=== PATIENT | male | born 1945 | race Caucasian/White ===

== ENCOUNTER → 2016-07-31 | Outpatient (CLI) | payer OTHER ==
[2016-07-31 11:52] LABS: EKG EKG PERFORMED
[2016-07-31 12:32] LABS: Basophils # (A) 0.1 k/uL (0-0.2); Basophils % (A) 1 %; CH 30.5; CHCM 33.7; Eosinophils # (A) 0.2 k/uL (0-0.7); Eosinophils % (A) 4 %; HCT 47.3 % (39.0-53.0); HDW 2.51; HGB 15.4 gm/dL (13.0-17.5); Luc # (Auto) 0.11; Luc % (Auto) 2; Lymphocytes % (A) 16 %; MCH 29.6 pg (25.0-35.0); MCHC 32.5 g/dL (31.0-37.0); MCV 90.9 fL (80.0-100.0); Monocytes # (A) 0.5 k/uL (0-1.0); Monocytes % (A) 7 %; Neutrophils # (A) 4.6 k/uL (1.3-7.7); Neutrophils % (A) 71 %; Partial Thromboplastin Time 24.1 sec (22.0-30.0); Prothrombin Time 10.4 sec (9.0-12.0); RDW 12.9 % (11.5-15.5); WBC 6.5 k/uL (3.8-10.6); WBC (Perox) 6.66
[2016-07-31 13:03] LABS: Appearance,Urine Cloudy (Clear); Bacteria,Urine Rare /hpf; Bilirubin,Urine Negative (Negative); Glucose,Urine (UA) Negative (Negative); Ketones,Urine Trace (Negative); Leukocyte Esterase,Urine Negative (Negative); Mucus,Urine Occasional /hpf; Nitrite,Urine Negative (Negative); PH, Urine 6.5 (5.0-8.0); Particle Count 5669; Protein,Urine 2+ (Negative); Specific Gravity,Urine 1.023 (1.001-1.035); Squamous Epithelial Cell,Urine <1 /hpf (0-4); UA Billing (MACRO vs. MICRO) MICRO; WBC,Urine 1 /hpf (0-5)
[2016-07-31 13:05] LABS: ALT 29 U/L (21-72); AST 20 U/L (17-59); Alkaline Phosphatase 83 U/L (38-126); Anion Gap 10 mmol/L; Blood Urea Nitrogen 16 mg/dL (9-20); Calcium 9.7 mg/dL (8.4-10.2); Carbon Dioxide 29 mmol/L (22-30); Chloride 102 mmol/L (98-107); Glucose 104 mg/dL (74-99); Non-African American GFR(MDRD) >60 (>60 ml/min/1.73 sqM); Potassium 4.1 mmol/L (3.5-5.1); Sodium 141 mmol/L (137-145); Total Bilirubin 0.8 mg/dL (0.2-1.3); Total Protein 7.3 g/dL (6.3-8.2)
== END | disposition home or self-care (01) ==
LOC: LABPAT 11:31
PROVIDERS: ATTEND Orthopaedic Surgery
DX: Z01.812 Encounter for preprocedural laboratory examination (principal); Z01.810 Encounter for preprocedural cardiovascular examination
CPT/HCPCS: 80053; 81001; 85025; 85610; 85730; 87070; 93005

== ENCOUNTER 2016-08-06 05:52 | Inpatient (IN) | payer OTHER ==
[2016-08-02 15:26] VITALS: BMI 31.4
[~2016-08-06 05:52] MED LIST: DEXAMETHASONE SOD PHOSPHATE 10 MG/ML 1 ML VIAL IV ONE; MIDAZOLAM 2 MG/2 ML VIAL IV PRN; ONDANSETRON 4 MG/2 ML VIAL IVP ONE; SCOPOLAMINE 1.5MG/72HR PATCH TRANSDERM ONE; TRANEXAMIC ACID 1,000 MG in SODIUM CHLORIDE 0.9% 100 ML IVPB ONE; ceFAZolin 2 GM in SODIUM CHLORIDE 0.9% 100 ML IVPB ONE
[2016-08-06] MEDS: LACTATED RINGERS 1,000 ML IV SCH ×3 (06:38→21:30)
[2016-08-06] MEDS ORDERED: LIDOCAINE 1% 20 ML VIAL (10MG/ML) FOR IV START INTRADERMA ONE (06:39)
[2016-08-06] MEDS ORDERED: PHENYLEPHRINE-0.9% NACL SYG 1 MG/10 ML SYRINGE ONE (06:58)
[2016-08-06] MEDS ORDERED: SODIUM CHLORIDE 0.9% 100 ML BAG ONE (06:58)
[2016-08-06] MEDS ORDERED: SODIUM CHLORIDE 0.9% IRRIG 1,000 ML BTL IRRIGATION ONE (06:58)
[2016-08-06] MEDS ORDERED: PROPOFOL 10 MG/ML 20 ML VIAL IV ONE (06:58)
[2016-08-06] MEDS ORDERED: fentaNYL (PF) 50 MCG/ML 2 ML AMP ONE (06:58)
[2016-08-06] MEDS ORDERED: MIDAZOLAM 2 MG/2 ML VIAL ONE (06:58)
[2016-08-06] MEDS ORDERED: HEPARIN SODIUM,PORCINE 10,000 UNIT/ML 1 ML VIAL ONE (06:58)
[2016-08-06] MEDS ORDERED: TRANEXAMIC ACID 1,000 MG/10 ML VIAL ONE (06:58)
[2016-08-06] MEDS ORDERED: ePHEDrine 50 MG/ML 1 ML AMP ONE (06:58)
[2016-08-06] MEDS ORDERED: LACTATED RINGERS 1,000 ML IV ONE ×3 (07:48→09:27)
[2016-08-06] MEDS ORDERED: ceFAZolin 3,000 MG in SODIUM CHLORIDE 0.9% IRRIGATIO 3,000 ML IRRIGATION ONE (08:00)
[2016-08-06] MEDS ORDERED: HYDROcodone/APAP 5-325MG 1 EACH TAB PO PRN (09:56)
[2016-08-06] MEDS ORDERED: TEMAZEPAM 15 MG CAP PO PRN (09:56)
[2016-08-06] MEDS ORDERED: HYDROmorphone 1 MG/ML 1 ML SYRINGE IVP PRN ×3 (09:56)
[2016-08-06] MEDS ORDERED: ONDANSETRON 4 MG/2 ML VIAL IVP PRN (09:56)
[2016-08-06] MEDS ORDERED: MAGNESIUM HYDROXIDE 2,400 MG/10 ML CUP PO PRN (09:56)
[2016-08-06] MEDS ORDERED: NALOXONE 0.4 MG/ML 1 ML VIAL IV PRN (09:56)
[2016-08-06] MEDS: HYDROmorphone 1 MG/ML 1 ML SYRINGE IVP PRN ×2 (10:06→10:11)
--- NOTE | 2016-08-06 10:48 | XR ---
EXAMINATION TYPE: XR Hip Limited RT DATE OF EXAM: 08/06/2016 10:21 AM COMPARISON: NONE HISTORY: 70-year-old male status post hip surgery, assess surgical alignment TECHNIQUE: Single portable frontal view FINDINGS: Image shows placement of right total hip arthroplasty. The acetabular cup and femoral short stem comp onent of the prosthesis appear well seated without periprosthetic fracture. Alignment is grossly nani omic. Soft tissue gas relating to recent operation. IMPRESSION: Uncomplicated postoperative appearance right total hip arthroplasty.
[2016-08-06] MEDS: HYDROcodone/APAP 5-325MG 1 EACH TAB PO PRN ×2 (14:05→21:44)
[2016-08-06] MEDS: SERTRALINE 100 MG TAB PO SCH ×2 (16:13→16:14)
[2016-08-06] MEDS: ceFAZolin 2 GM in SODIUM CHLORIDE 0.9% 100 ML IVPB SCH ×2 (16:14→23:00)
[2016-08-06] MEDS ORDERED: WARFARIN 5 MG TAB PO ONE (18:00)
--- NOTE | 2016-08-06 20:33 | CONS ---
DATE OF CONSULTATION: REASON FOR CONSULTATION: Recommendations regarding antihypertensive medications, postoperative medical management and postoperative hypotension. Patient is a pleasant 70-year-old gentleman admitted for elective right hip arthroplasty. Patient ( ) underwent surgery. Patient is passing gas, did not move his bowels yet. Patient denied any fever or chills. Patient denied any dysuria. Patient denied any cough ( ). I believe Marie catheter was removed. Patient lost about 350 mL of blood. Patient was mildly hypotensive postoperatively, which improved with IV fluids. REVIEW OF SYSTEMS: CONSTITUTIONAL: No fever, no malaise, no fatigue. HEENT: No recent visual problems or hearing problems. Denied any sore throat. CARDIOVASCULAR: No chest pain, orthopnea, PND, no palpitations, no syncope. PULMONARY: No shortness of breath, no cough, no hemoptysis. GASTROINTESTINAL: No diarrhea, no nausea, no vomiting, no abdominal pain. Normoactive bowel sounds. NEUROLOGICAL: No headaches, no weakness, no numbness. HEMATOLOGICAL: Denies any bleeding or petechiae. GENITOURINARY: Denies any burning micturition, frequency, or urgency. MUSCULOSKELETAL/RHEUMATOLOGICAL: Patient's pain is very well controlled at this point of time. ENDOCRINE: Denies any polyuria or polydipsia. The rest of the 14 point review of systems is negative. Home medications include: 1. Valsartan. 2. Sertraline. 3. Mobic. 4. Levothyroxine. 5. Hydrochlorothiazide. 6. Atorvastatin. 7. Warfarin. 8. Aspirin. PAST MEDICAL HISTORY: 1. Hypertension. 2. Hyperlipidemia. 3. Severe osteoarthritis. 4. Sleep apnea; uses CPAP machine at home. 5. Hypothyroidism. 6. Hernia repair. 7. Joint replacement surgery. 8. Shoulder surgery. SOCIAL HISTORY: Former smoker; quit 25 years ago. Denied any alcohol abuse or any drug abuse. FAMILY HISTORY: Significant for lung cancer in the family. PHYSICAL EXAMINATION: VITAL SIGNS: Temperature 98.0, pulse of 93, respiratory rate of 17. Blood pressure is 115/68 at present. Saturating at 95% on 2 L of oxygen by nasal cannula. GENERAL: The patient is alert and oriented x3, not in any acute distress. Well developed, well nourished. HEENT: Pupils are round and equally reacting to light. EOMI. No scleral icterus. No conjunctival pallor. Normocephalic, atraumatic. No pharyngeal erythema. No thyromegaly. CARDIOVASCULAR: S1 and S2 present. No murmurs, rubs, or gallops. PULMONARY: Chest is clear to auscultation, no wheezing or crackles. ABDOMEN: Soft, nontender, nondistended, normoactive bowel sounds. No palpable organomegaly. MUSCULOSKELETAL: No joint swelling or deformity. EXTREMITIES: No cyanosis, clubbing, or pedal edema. NEUROLOGICAL: Gross neurological examination did not reveal any focal deficits. SKIN: No rashes. LABORATORY DATA: None available at this point of time. ASSESSMENT AND PLAN: 1. Right hip arthroplasty, postoperative day zero. Patient is clinically doing well. I will hold off on antihypertensives to prevent perioperative hypotension. 2. Hypotension, which is not expected post surgery. I will hold off on antihypertensive medications, continue with IV fluids. 3. Hypothyroidism. 4. Hyperlipidemia. 5. Deep venous thrombosis prophylaxis, gastrointestinal prophylaxis and pain management as per primary service. I will continue to follow the patient on an as-needed basis. Thank you for letting me participate in this patient's care. Patient's primary care physician is Dr. Cesar Mohr.
[2016-08-06] MEDS: SENNOSIDES-DOCUSATE SODIUM 1 EACH TAB PO SCH (21:30)
[2016-08-06] MEDS: ATORVASTATIN 10 MG TAB PO SCH (21:30)
[2016-08-06] MEDS: hydrOXYzine PAMOATE 25 MG CAP PO PRN (21:45)
[2016-08-07] MEDS: HYDROcodone/APAP 5-325MG 1 EACH TAB PO PRN (04:16)
[2016-08-07] MEDS: hydrOXYzine PAMOATE 25 MG CAP PO PRN ×4 (04:16→21:20)
[2016-08-07] MEDS: LACTATED RINGERS 1,000 ML IV SCH ×2 (06:09→06:10)
[2016-08-07] MEDS: LEVOTHYROXINE 112 MCG TAB PO SCH (06:10)
[2016-08-07 07:59] LABS: INR 1.9 (<1.1); Prothrombin Time 18.3 sec (9.0-12.0)
[2016-08-07 08:17] LABS: Basophils # (A) 0.1 k/uL (0-0.2); Basophils % (A) 1 %; CH 30.4; CHCM 33.4; Eosinophils # (A) 0.1 k/uL (0-0.7); Eosinophils % (A) 1 %; HCT 36.9 % (39.0-53.0); HDW 2.43; Luc % (Auto) 2; Lymphocytes # (A) 1.1 k/uL (1.0-4.8); Lymphocytes % (A) 18 %; MCH 30.1 pg (25.0-35.0); MCV 91.4 fL (80.0-100.0); Mean Platelet Volume 7.6; Monocytes # (A) 0.4 k/uL (0-1.0); Monocytes % (A) 7 %; Neutrophils # (A) 4.7 k/uL (1.3-7.7); Neutrophils % (A) 72 %; RBC 4.04 m/uL (4.30-5.90); RDW 12.8 % (11.5-15.5); WBC 6.5 k/uL (3.8-10.6); WBC (Perox) 6.72
--- NOTE | 2016-08-07 08:17 | P.PN ---
Subjective Principal diagnosis: Status post right total hip arthroplasty This is a 70 year-old male post right total hip arthroplasty. This is post-op day 1. The patient was evaluated at the bedside today. The patient denies nausea, vomiting, abdominal pain, shortness of breath, and chest pain this morning. He states his pain is controlled at this time. The patient has not been up with physical therapy yet this morning but did ambulate in the hallway last night. Objective - Vital Signs Vital signs: Vital Signs Temp 97.1 F L 08/07/16 04:00 Pulse 91 08/07/16 04:00 Resp 18 08/07/16 04:00 BP 111/64 08/07/16 04:00 Pulse Ox 99 08/06/16 18:57 Intake & Output 08/06/16 08/07/16 08/07/16 18:59 06:59 18:59 Intake Total 3881 480 Output Total 890 2240 Balance 2991 -1760 Weight 99.337 kg 99.337 kg Intake: IV 1601 Intake, IV Titration 800 Amount Lactated Ringers 1,000 ml 800 @ 100 mls/hr IV .Q10H [facility] Rx#:[id number] Oral 1480 480 Output: Urine 540 2240 Uretheral (Marie) 300 Estimated Blood Loss 350 Other: Voiding Method Indwelling Catheter Indwelling Catheter - Exam The patient does not appear in acute distress. Alert and orientated x3. Dressing is clean dry and intact. Incision appears fine with no erythema or active drainage. Calf is soft and nontender. Good foot and ankle motion without difficulty. Sensation and circulatory status is intact. - Labs Labs: Abnormal Lab Results - Last 24 Hours (Table) 08/07/16 Range/Units 07:18 PT 18.3 H (9.0-12.0) sec Laboratory Tests 08/07/16 07:18 PT 18.3 H INR 1.9 Assessment and Plan (1) Primary osteoarthritis of right hip Status: Acute (2) Status post right hip replacement Status: Acute Plan: 1. Continue pain control 2. Anticoagulation with Coumadin per protocol 3. Continue physical therapy and ambulation 4. Anticipate discharge home with homecare in the next 1-2 days
[2016-08-07 08:35] LABS: HGB 12.2 gm/dL (13.0-17.5)
[2016-08-07] MEDS: SERTRALINE 100 MG TAB PO SCH ×2 (09:17)
[2016-08-07] MEDS: HYDROcodone/APAP 7.5-325MG 1 EACH TAB PO PRN ×3 (09:18→21:21)
[2016-08-07] MEDS ORDERED: WARFARIN 5 MG TAB PO ONE (18:00)
--- NOTE | 2016-08-07 20:06 | OP ---
DATE OF SERVICE: 08/06/2016 SURGEON: TANYA HYATT DO MAT PUNCHER: ANTHONY ISAAC NP PREOPERATIVE DIAGNOSIS: Degenerative joint disease of the right hip. POSTOPERATIVE DIAGNOSIS: Degenerative joint disease of the right hip. OPERATION: Right total hip replacement arthroplasty utilizing Ebony components with a metal-backed polyethylene cup. ANESTHESIA: ESTIMATED BLOOD LOSS: SPECIMENS REMOVED: COMPLICATIONS: OPERATIVE FINDINGS: DESCRIPTION OF PROCEDURE: The patient was taken to the operative suite and placed in supine position. Spinal anesthesia had been performed by the department of anesthesiology. The patient was placed in the left lateral recumbent position. With appropriate padding he was secured on the surgical table. A Betadine prep was carried out over the right hip. Sterile drapes were applied in the usual manner. A longitudinal incision was developed over the proximal femur and the greater trochanter. Sharp dissection through the subcutaneous tissues was performed. The tensor fascia liseth was incised and self retaining retractor was inserted. Gluteus medius was dissected along the greater trochanter. The anterior capsule was identified and the leg adducted and the femoral head dislocated. Femoral neck was shaped with a bone saw and the femoral head was measured. The box chisel and reamer was utilized in preparing the canal. The trochanteric reamer was utilized preparing the proximal canal. Graduated reaming was carried out to a size 12 for a graduated approach that was utilized in the canal measuring a size 13. The shelving planer was utilized in preparing the femoral neck. The stability of the component was excellent. The acetabulum was approached and inspected. Graduated reaming was utilized to prepare for the size 52 press-fit cup. The trial cup was assessed for stability and alignment was well maintained. The area was irrigated copiously with Pulsavac antibiotic solution. The size 52 femoral component was impacted into position. Alignment and stability were maintained. The 54 mm cup was inserted and impacted, too. Two cancellous screws were inserted for cup stability. The final polyethylene 32 mm elevated liner cup was placed into the metal-backed cup, impacted and locked into position. The proximal femur was approached with a femoral stem size 13 and showed good position in the cortical arc. The trial neck was then placed into position with 13 mm head and neck. The hip was reduced. This showed alignment and stability. The hip was then dislocated and the trial femoral components were removed. The area was irrigated again with antibiotic solution. The final femoral stem was inserted. The final 32 mm liner was impacted around the trunnion. Head was again stable in alignment and position. Leg lengths were comparable to each other. The gluteus medius approximated with #3 Vicryl suture. The #2 Vicryl and Quill suture was utilized in reinforcing the fascia liseth. Vicryl suture was utilized in approximating subcutaneous tissue in mattress fashion. Skin was approximated with 3-0 Quill in subcuticular fashion. Skin was treated with Dermabond. Sterile pressure dressing were applied and the patient was placed in an abductor pillow splint and transferred to the recovery room in satisfactory postoperative condition. GROSS PATHOLOGY: There was severe degenerative joint disease of the right hip. Estimated blood loss 350 mL; 250 mL was returned utilizing CellSaver. JAMILAD
[2016-08-07] MEDS: ATORVASTATIN 10 MG TAB PO SCH (21:18)
[2016-08-07] MEDS: SENNOSIDES-DOCUSATE SODIUM 1 EACH TAB PO SCH (21:21)
[2016-08-08 04:57] VITALS: RESP 16
[2016-08-08] MEDS: HYDROcodone/APAP 7.5-325MG 1 EACH TAB PO PRN ×2 (05:35→11:06)
[2016-08-08] MEDS: hydrOXYzine PAMOATE 25 MG CAP PO PRN ×2 (05:35→11:05)
[2016-08-08] MEDS: LEVOTHYROXINE 112 MCG TAB PO SCH (05:36)
[2016-08-08 07:20] VITALS: BP 112/62; PULSE 90; TEMP 98.6
[2016-08-08 08:03] LABS: INR 2.1 (<1.1); Prothrombin Time 20.4 sec (9.0-12.0)
--- NOTE | 2016-08-08 08:16 | P.DS ---
Providers Date of admission: 08/06/16 05:52 Expected date of discharge: 08/08/16 Attending physician: Randal Abdi Consults: 08/06/16 09:56 Consult Physician Routine Consulting Provider: Fran Tillman Consult Reason/Comments: medical management Do you want consulting provider notified?: Yes Primary care physician: Cesar Mohr - Discharge Diagnosis(es) (1) Primary osteoarthritis of right hip Current Visit: Yes Status: Acute (2) Status post right hip replacement Current Visit: Yes Status: Acute Hospital Course: This is a 70-year-old male with known history of degenerative arthritis of the right hip. The patient presents for evaluation. After discussion and consideration patient elects to proceed with total hip arthroplasty. The patient is seen preoperatively by his primary care physician and cleared for surgery. Patient is admitted to [facility] on 08/06/2016 for total hip arthroplasty. The procedures performed without complication or sequelae. The patient is doing well postoperatively. Labs and vital signs are stable on day of discharge. On day of discharge patient's hip incision is healing well. There is minimal erythema. There is no drainage noted at this time. There is minimal soft tissue swelling to the hip and thigh. Patient has full foot and ankle motion without difficulty or pain. Neurovascular status to the right lower extremity is intact. Patient is discharged to home in good condition. Pertinent Studies: Laboratory Tests 08/07/16 08/07/16 07:18 07:18 WBC 6.5 RBC 4.04 L Hgb 12.2 L D Hct 36.9 L PT 18.3 H INR 1.9 Patient Condition at Discharge: Stable Plan - Discharge Summary New Discharge Prescriptions: Aspirin 325 mg PO DAILY #30 tab HYDROcodone/APAP 7.5-325MG [[place] 7.5-325] 1 - 2 tab PO Q4-6H PRN #90 tab PRN Reason: Pain Sennosides-Docusate Sodium [Senokot-S] 2 tab PO DAILY #30 tablet Warfarin [Coumadin] 2.5 mg PO DIRECTED #30 tab Discharge Medication List Atorvastatin [Lipitor] 10 mg PO HS 11/11/13 [History] Levothyroxine Sodium [Synthroid] 112 mcg PO QAM 11/11/13 [History] Hydrochlorothiazide [Hydrodiuril] 25 mg PO QAM 01/29/16 [History] Valsartan [Diovan] 160 mg PO QAM 01/29/16 [History] Mobic(Unk Dose) 1 tab PO DAILY 08/02/16 [History] Sertraline HCl [Zoloft] 100 mg PO QAM 08/02/16 [History] Aspirin 325 mg PO DAILY #30 tab 08/06/16 [Rx] Warfarin [Coumadin] 2.5 mg PO DIRECTED #30 tab 08/06/16 [Rx] HYDROcodone/APAP 7.5-325MG [[place] 7.5-325] 1 - 2 tab PO Q4-6H PRN #90 tab [Rx] Sennosides-Docusate Sodium [Senokot-S] 2 tab PO DAILY #30 tablet 08/07/16 [Rx] Follow up Appointment(s)/Referral(s): Randal Abdi DO [Doctor of Osteopathic Medicine] - 2 Weeks [facility], [NON-STAFF] - 1 Week Activity/Diet/Wound Care/Special Instructions: Weightbearing as tolerated with a walker Coumadin 2.5 mg 1 by mouth every other day for 7 days then take Aspirin 325mg daily for 1 month Follow Hip precautions Use Abductor pillow as instructed May shower in 3 days if no drainage from incision Keep incision clean and dry Call [facility] [phone] with questions or concerns Discharge Disposition: HOME WITH HOME HEALTH SERVICES
[2016-08-08] MEDS: SERTRALINE 100 MG TAB PO SCH (08:26)
--- NOTE | 2016-08-08 19:23 | PN ---
Patient is a 70-year-old admitted for elective right hip arthroplasty. Patient is clinically doing well and patient can be discharged from my perspective. DVT prophylaxis per primary service. Patient was seen and examined. REVIEW OF SYSTEMS: CARDIOVASCULAR: No chest pain, no orthopnea, no PND, no palpitations. PULMONARY: Denied any shortness of breath. No cough or hemoptysis. GASTROINTESTINAL: No diarrhea, nausea or vomiting. No abdominal pain. Normoactive bowel sounds. NEUROLOGIC: No headaches, no weakness, no numbness. Regarding discharge medications, I recommend holding Diovan for now until he sees a primary care physician. I counseled him on the appropriate way to measure the blood pressure. Patient's blood pressure remains to be on the low-normal side in spite of holding this medication for a day. PHYSICAL EXAMINATION: VITAL SIGNS: Temperature 98.6, pulse of 90, respiratory rate of 16. Blood pressure is 112/62. Saturating at 93% on room air GENERAL: The patient is alert and oriented x3, not in any acute distress. Well developed, well nourished. HEENT: Pupils are round and equally reacting to light. EOMI. No scleral icterus. No conjunctival pallor. Normocephalic, atraumatic. No pharyngeal erythema. No thyromegaly. CARDIOVASCULAR: S1 and S2 present. No murmurs, rubs, or gallops. PULMONARY: Chest is clear to auscultation, no wheezing or crackles. ABDOMEN: Soft, nontender, nondistended, normoactive bowel sounds. No palpable organomegaly. MUSCULOSKELETAL: No joint swelling or deformity. EXTREMITIES: No cyanosis, clubbing, or pedal edema. NEUROLOGICAL: Gross neurological examination did not reveal any focal deficits. SKIN: No rashes. LABORATORY DATA: No significant abnormality was appreciated. ASSESSMENT AND PLAN: 1. Right hip arthroplasty. 2. Perioperative hypotension. 3. History of hypertension. 4. Hypothyroidism. 5. Hyperlipidemia. PLAN: As mentioned above.
--- NOTE | 2016-10-24 15:53 | CONS ---
DATE OF CONSULTATION: 08/06/2016 ADDENDUM TO CONSULTATION: Patient was hypotensive during hospitalization. This is an expected outcome post surgery rather than a complication of surgery. I do not believe it is a complication of surgery. It is an expected outcome of the surgery.
== END 2016-08-08 13:27 | disposition home health service (06) | DRG 470 ==
LOC: 2ORMAIN 05:52 → 3SUR 09:56
PROVIDERS: ADMIT Orthopaedic Surgery; ATTEND Orthopaedic Surgery
PROC: 0SR902A Replacement of Right Hip Joint with Metal on Polyethylene Synthetic Substitute, Uncemented, Open Approach (ICD-10-PCS; principal; 2016-08-06 07:00)
DX: M16.11 Unilateral primary osteoarthritis, right hip (principal); I95.89 Other hypotension; I10 Essential (primary) hypertension; E03.9 Hypothyroidism, unspecified; Z79.899 Other long term (current) drug therapy; E78.5 Hyperlipidemia, unspecified; G47.30 Sleep apnea, unspecified; Z87.891 Personal history of nicotine dependence; Z79.82 Long term (current) use of aspirin
CPT/HCPCS: 73501; 85025; 85610; 86850; 86891; 86900; 86901; 88300; 94760

== ENCOUNTER → 2017-12-25 | Outpatient (CLI) | payer OTHER ==
--- NOTE | 2017-12-25 17:57 | CONS ---
CONSULTATION DATE OF SERVICE: 12/25/2017 A 72-year-old gentleman has been evaluated in [facility] for obstructive sleep apnea- hypopnea syndrome. HISTORY OF PRESENT ILLNESS/SLEEP-WAKE EVALUATION: Patient was diagnosed with obstructive sleep apnea many years ago, was started on treatment with CPAP, but stopped using CPAP about 5 years ago. Presently his sleep schedule from 10 p.m. to 10:00 a.m. Sometimes he has problems to fall asleep, although no TV in the bedroom. According to his , he has loud snoring and episodes of snorting, possibly episodes of stopped breathing during the sleep. He very seldom takes any naps. Lehr Sleepiness Scale is 5. PAST MEDICAL HISTORY: Positive for hyperlipidemia, hypertension, hypothyroidism. PAST SURGICAL HISTORY: Bilateral knee replacement, right hip replacement. MEDICATIONS: Atorvastatin, valsartan, hydrochlorothiazide, levothyroxine. REVIEW OF SYSTEMS: Snoring, witnessed episodes of stopped breathing. SOCIAL HISTORY: Positive for smoking in the past, quit 25 years ago. Alcohol consumption none at the present time. FAMILY HISTORY: Hypertension, asthma, sinus problems, diabetes. PHYSICAL EXAM: GENERAL gentleman without distress. VITAL SIGNS BP 130/73, HR 89, R 18, height 5 feet 8 inches, weight 241.8, BMI 36.6, temperature 98, oxygen saturation room air 93%. HEPOLINA JOSERBEATRICE, EOMI, evaluation of oropharynx showed extremely low position of soft palate. Big scar on the upper part of the soft palate. NECK Supple, no JVD. Thyroid is not palpable. LUNGS Clear to percussion and to auscultation. Good air exchange. No wheezing or rhonchi. HEART S1, S2 regular. No murmurs, gallops, or rubs. ABDOMEN Obese. Soft and nontender. Bowel sounds are present. No organomegaly appreciated. EXTREMITIES No clubbing or cyanosis. SALES SUPERINTENDENT Awake, alert, and oriented X3. Cranial nerves 2 to 7 intact. There is no fasciculation or atrophy. noted. No focal deficits observed. IMPRESSION: 1. Snoring, witnessed episodes of stopped breathing during the sleep. History of obstructive sleep apnea in the past. Extremely low position of soft palate, wide neck 17-1/4 inch in circumference. Obstructive sleep apnea-hypopnea syndrome. 2. Obesity. 3. Hypertension. 4. Hypothyroidism. 5. Hyperlipidemia. 6. Status post bilateral knee replacement. 7. Status post right hip replacement. 8. History of smoking in the past. Quit 25 years ago. PLAN: 1. Polysomnography for evaluation of patient's breathing during sleep. 2. CPAP/BiPAP titration if sleep study confirms obstructive sleep apnea-hypopnea syndrome. 3. Preferable position during sleep on the side. 4. No driving if patient feels any sleepiness. 5. I will see patient for follow up visit to explain results of testing and following plan. Thank you very much for referring this patient for consultation. Sincerely, Jorje Fenton MD, PhD, FAASM Diplomat of [place] [employer] [place] [employer] Regulatory [employer]folio Leader of [facility] MMODL / IJN: [id number] /
== END | disposition home or self-care (01) ==
LOC: SLEEP 13:49
PROVIDERS: ATTEND Internal Medicine
DX: G47.33 Obstructive sleep apnea (adult) (pediatric) (principal); E66.9 Obesity, unspecified; I10 Essential (primary) hypertension; E03.9 Hypothyroidism, unspecified; E78.5 Hyperlipidemia, unspecified; Z96.653 Presence of artificial knee joint, bilateral; Z96.641 Presence of right artificial hip joint; Z87.891 Personal history of nicotine dependence
CPT/HCPCS: 99211

== ENCOUNTER 2019-04-14 08:02 | Day surgery (SDC) | payer MEDICARE, OTHER ==
[2019-04-12 09:24] VITALS: BMI 31.1
[~2019-04-14 08:02] MED LIST changes: -DEXAMETHASONE SOD PHOSPHATE 10 MG/ML 1 ML VIAL IV ONE; +LACTATED RINGERS 1,000 ML IV SCH; +LIDOCAINE 1% 20 ML VIAL (10MG/ML) FOR IV START INTRADERMA PRN; -MIDAZOLAM 2 MG/2 ML VIAL IV PRN; -ONDANSETRON 4 MG/2 ML VIAL IVP ONE; -SCOPOLAMINE 1.5MG/72HR PATCH TRANSDERM ONE; -TRANEXAMIC ACID 1,000 MG in SODIUM CHLORIDE 0.9% 100 ML IVPB ONE; -ceFAZolin 2 GM in SODIUM CHLORIDE 0.9% 100 ML IVPB ONE
--- NOTE | 2019-04-14 08:21 | P.GSHP ---
History of Present Illness H&P Date: 04/14/19 CHIEF COMPLAINT: Colon screen HISTORY OF PRESENT ILLNESS: The patient is a 73-year-old male who presents for colon screen. Lower endoscopy was offered for further evaluation and management. PAST MEDICAL HISTORY: Please see list. PAST SURGICAL HISTORY: Please see list. MEDICATIONS: Please see list. ALLERGIES: Please see list. SOCIAL HISTORY: No illicit drug use FAMILY HISTORY: No reports of Crohn disease or ulcerative colitis. REVIEW OF ORGAN SYSTEMS: CONSTITUTIONAL: No reports of fevers or chills. PHYSICAL EXAM: VITAL SIGNS: Stable GENERAL: Well-developed pleasant in no acute distress. HEENT: No scleral icterus. Extraocular movements grossly intact. Moist buccal mucosa. NECK: Supple without lymphadenopathy. CHEST: Unlabored respirations. Equal bilateral excursions. CARDIOVASCULAR: Regular rate and rhythm. Distal 2+ pulses. ABDOMEN: Soft, nontender, nondistended. MUSCULOSKELETAL: No clubbing, cyanosis, or edema. ASSESSMENT: 1. Colon screen. PLAN: 1. Recommend proceeding with a lower endoscopy Past Medical History Past Medical History: Hyperlipidemia, Hypertension, Osteoarthritis (OA), Sleep Apnea/CPAP/BIPAP, Thyroid Disorder Additional Past Medical History / Comment(s): USES CPAP. History of Any Multi-Drug Resistant Organisms: None Reported Past Surgical History: Hernia Repair, Joint Replacement, Orthopedic Surgery Additional Past Surgical History / Comment(s): Left shoulder surg. BILAT TKA. BILAT CATARACTS, RT CHI, COLONOSCOPY Past Anesthesia/Blood Transfusion Reactions: No Reported Reaction Additional Past Anesthesia/Blood Transfusion Reaction / Comment(s): no hx blood transfusion Smoking Status: Former smoker - Past Family History Mother Family Medical History: Diabetes Mellitus Father Additional Family Medical History / Comment(s): alcoholism Brother(s) Family Medical History: Cancer Additional Family Medical History / Comment(s): lung Medications and Allergies Home Medications Medication Instructions Recorded Confirmed Type Atorvastatin [Lipitor] 10 mg PO HS 11/11/13 04/12/19 History Hydrochlorothiazide 25 mg PO HS 04/12/19 04/12/19 History Levothyroxine Sodium [Synthroid] 125 mcg PO DAILY 04/12/19 04/12/19 History Losartan Potassium 100 mg PO HS 04/12/19 04/12/19 History Allergies Allergy/AdvReac Type Severity Reaction Status Date / Time No Known Allergies Allergy Verified 04/14/19 08:19
[2019-04-14 08:35] VITALS: RESP 16; TEMP 98.4
[2019-04-14] MEDS ORDERED: PROPOFOL 10 MG/ML 20 ML VIAL IV ONE (08:46)
[2019-04-14 09:38] VITALS: BP 109/66; PULSE 82
--- NOTE | 2019-04-14 09:38 | P.PCN ---
Date of Procedure: 04/14/19 Description of Procedure: PREOPERATIVE DIAGNOSIS: Colonoscopy screening. Personal history of colon polyps POSTOPERATIVE DIAGNOSIS: Colonoscopy screening. Personal history of colon polyps Diverticulosis, scattered. Internal hemorrhoids, grade 2 Enlarged prostate OPERATION: Colonoscopy to the ileocecal valve and appendiceal orifice. SURGEON: Dawn Rojas MD. ANESTHESIA: MAC. INDICATIONS: The patient is a 73-year-old male who presents for colonoscopy screening. Benefits and risks were described and informed consent was obtained. DESCRIPTION OF PROCEDURE: The patient had undergone Suprep. He had been brought into the operating room and laid in the left lateral decubitus position. After adequate intravenous sedation, the rectum was examined with 2% lidocaine jelly. External hemorrhoids were encountered. The rectal tone was within normal limits. No lesions were palpated in the rectal vault. The prostate was moderately enlarged without nodules. An Olympus colonoscope was advanced until the ileocecal valve and appendiceal orifice were clearly viewed. The prep was fair with moderate g astrointestinal bubbles. Scattered diverticulosis was encountered with highly redundant sigmoid colon requiring abdominal wall pressure. No large colonic polyps were found. No evidence of focal colitis was found. Retroflexion of the scope demonstrated grade 2 internal hemorrhoids without active bleeding or inflammation. The colon was desufflated. The patient had tolerated the procedure well. Withdrawal time was over 6 minutes. FINDINGS: Aronchick preparation quality scale 1 (1-5) Internal hemorrhoids, grade 2 External prolapsed hemorrhoids, grade 3 No arteriovenous malformations. No adenomatous polyps. No focal colitis. Highly redundant sigmoid colon with diverticulosis Enlarged prostate RECOMMENDATIONS: Lower endoscopy in 5 years, 2023 Plan - Discharge Summary Discharge Rx Participant: No New Discharge Prescriptions: No Action Atorvastatin [Lipitor] 10 mg PO HS Levothyroxine Sodium [Synthroid] 125 mcg PO DAILY Losartan Potassium 100 mg PO HS Hydrochlorothiazide 25 mg PO HS Discharge Medication List Atorvastatin [Lipitor] 10 mg PO HS 11/11/13 [History] Hydrochlorothiazide 25 mg PO HS 04/12/19 [History] Levothyroxine Sodium [Synthroid] 125 mcg PO DAILY 04/12/19 [History] Losartan Potassium 100 mg PO HS 04/12/19 [History] Follow up Appointment(s)/Referral(s): Dawn Rojas MD [STAFF PHYSICIAN] - As Needed Patient Instructions/Handouts: *Surgery [facility] - (Anesthesia) Endoscopy Discharge Instructions, Hemorrhoids (DC), Diverticulosis (DC), Colonoscopy (DC) Activity/Diet/Wound Care/Special Instructions: Repeat colonoscopy in 5 years, 2023 Discharge Disposition: HOME SELF-CARE
== END 2019-04-14 09:58 | disposition home or self-care (01) ==
LOC: ORWHC2ENDO 08:02
PROVIDERS: ATTEND Surgery Plastic and Reconstructive Surgery
DX: Z12.11 Encounter for screening for malignant neoplasm of colon (principal); K57.30 Diverticulosis of large intestine without perforation or abscess without bleeding; Q43.8 Other specified congenital malformations of intestine; K64.2 Third degree hemorrhoids; K64.1 Second degree hemorrhoids; N40.0 Benign prostatic hyperplasia without lower urinary tract symptoms; Z86.010 Personal history of colon polyps; E78.5 Hyperlipidemia, unspecified; I10 Essential (primary) hypertension; E07.9 Disorder of thyroid, unspecified; M19.90 Unspecified osteoarthritis, unspecified site; G47.33 Obstructive sleep apnea (adult) (pediatric); Z99.89 Dependence on other enabling machines and devices; Z87.891 Personal history of nicotine dependence; Z96.653 Presence of artificial knee joint, bilateral; Z96.641 Presence of right artificial hip joint; Z98.49 Cataract extraction status, unspecified eye; Z81.1 Family history of alcohol abuse and dependence
CPT/HCPCS: J2704; G0105

== ENCOUNTER → 2019-07-06 | Outpatient (CLI) | payer OTHER ==
[2019-07-06 12:37] LABS: Basophils # (A) 0.1 k/uL (0-0.2); Basophils % (A) 1 %; Eosinophils # (A) 0.2 k/uL (0-0.7); Eosinophils % (A) 3 %; HCT 47.2 % (39.0-53.0); HGB 15.5 gm/dL (13.0-17.5); Lymphocytes # (A) 1.3 k/uL (1.0-4.8); Lymphocytes % (A) 19 %; MCH 30.1 pg (25.0-35.0); MCHC 32.7 g/dL (31.0-37.0); MCV 91.9 fL (80.0-100.0); Mean Platelet Volume 7.4; Monocytes # (A) 0.4 k/uL (0-1.0); Monocytes % (A) 5 %; Neutrophils # (A) 4.6 k/uL (1.3-7.7); Neutrophils % (A) 69 %; Platelet Count 244 k/uL (150-450); RBC 5.14 m/uL (4.30-5.90); RDW 12.5 % (11.5-15.5); WBC 6.6 k/uL (3.8-10.6)
== END ==
LOC: LABPAT 11:34
PROVIDERS: ATTEND Orthopaedic Surgery
DX: Z01.812 Encounter for preprocedural laboratory examination (principal); M65.312 Trigger thumb, left thumb
CPT/HCPCS: 36415; 80051; 85025

== ENCOUNTER 2019-07-29 12:29 | Day surgery (SDC) | payer OTHER ==
[2019-07-26 13:25] VITALS: BMI 31.5
--- NOTE | 2019-07-28 13:55 | HP ---
HISTORY AND PHYSICAL DATE OF SURGERY: 07/29/2019 Pipe Guzman is a 73-year-old patient seen with symptomatic left trigger thumb. We discussed options. He elected to proceed with release A1 dariela, left thumb. Consent was obtained. PAST MEDICAL HISTORY: Hyperlipidemia, hypertension, hypothyroidism. PAST SURGICAL HISTORY: Right total knee arthroplasty, left total knee arthroplasty. MEDICATIONS: 1. Atorvastatin. 2. Hydrochlorothiazide. 3. Levothyroxine. 4. Losartan. ALLERGIES: None. SOCIAL HISTORY: Denies current tobacco use. PHYSICAL EVALUATION OF THE LEFT THUMB: He has tenderness along the A1 dariela area. There is clicking, catching, and locking of the left thumb with range of motion. He is nontender with remaining A1 dariela areas. He has good perfusion sensation distally. RADIOGRAPHS OF THE LEFT WRIST AND HAND: Reveals some osteoarthritic changes. IMPRESSION: 1. Left trigger thumb. 2. Hypertension. 3. Hyperlipidemia. PLAN: Release A1 dariela, left thumb. MMBINTA / IJN: [id number] /
[~2019-07-29 12:29] MED LIST changes: +HYDROmorphone 0.5 MG/0.5 ML SYRINGE IVP PRN; +ONDANSETRON 4 MG/2 ML VIAL IVP ONE
[2019-07-29 12:47] VITALS: RESP 16; TEMP 98.1
[2019-07-29] MEDS ORDERED: BUPIVACAINE (PF) 0.25% 30 ML VIAL SQ ONE ×3 (14:20→14:37)
[2019-07-29] MEDS ORDERED: LIDOCAINE 1% INJ 10MG/ML (20 ML MDV) ONE (14:22)
[2019-07-29] MEDS ORDERED: KETAMINE 10 MG/ML 20 ML VIAL ONE (14:22)
[2019-07-29] MEDS ORDERED: fentaNYL (PF) 50 MCG/ML 2 ML AMP ONE (14:22)
[2019-07-29] MEDS ORDERED: MIDAZOLAM 2 MG/2 ML VIAL ONE (14:22)
[2019-07-29] MEDS ORDERED: PROPOFOL 10 MG/ML 20 ML VIAL IV ONE (14:22)
--- NOTE | 2019-07-29 14:58 | P.OP ---
Date of Procedure: 07/29/19 Preoperative Diagnosis: Left trigger thumb Postoperative Diagnosis: Left trigger thumb Procedure(s) Performed: Release A1 dariela left thumb Anesthesia: MAC, local Surgeon: Lenny Gao Estimated Blood Loss (ml): 0 Pathology: none sent Condition: stable Disposition: PACU Indications for Procedure: 73-year-old patient seen with symptomatic left trigger thumb. After options regarding treatment were discussed with him, he elected to proceed with release A1 dariela left thumb. Operative Findings: See description of procedure Description of Procedure: The patient was taken to the operative suite. The patient received preoperative IV antibiotics. A well-padded tourniquet placed proximal left upper extremity. The left upper extremity was prepped and draped in the normal sterile orthopedic fashion. The proposed incision site was infiltrated with 6 mL quarter percent plain Marcaine. When sufficient local analgesia was noted the extremity was elevated and tourniquet insufflated to 250. I made an incision area a 1 dariela left thumb. I dissected down to the A1 dariela. I released the A1 dariela. I made sure it was completely released both proximally and distally. The thumb was taken through range of motion with good excursion of the tendon and no impingement. The wound was irrigated. There was good hemostasis. The skin margins were approximated with nylon suture. Sterile dressings were applied. The tourniquet was released and immediate capillary refill noted. Additional sterile dressings were applied. The patient was awakened, transferred to recovery stable condition.
[2019-07-29 15:11] VITALS: BP 105/56; PULSE 68
== END 2019-07-29 15:30 | disposition home or self-care (01) ==
LOC: OR 12:29
PROVIDERS: ATTEND Orthopaedic Surgery
DX: M65.312 Trigger thumb, left thumb (principal); I10 Essential (primary) hypertension; E78.5 Hyperlipidemia, unspecified; E03.9 Hypothyroidism, unspecified; Z96.653 Presence of artificial knee joint, bilateral; Z79.899 Other long term (current) drug therapy; Z79.890 Hormone replacement therapy; G47.33 Obstructive sleep apnea (adult) (pediatric); Z87.891 Personal history of nicotine dependence; K08.89 Other specified disorders of teeth and supporting structures
CPT/HCPCS: 26055; J2250; J0690; J2405; J2001; J3010; J2704

== ENCOUNTER → 2020-08-01 | Outpatient (CLI) | payer OTHER ==
--- NOTE | 2020-08-01 14:31 | MR ---
EXAMINATION TYPE: MR lumbar spine wo con DATE OF EXAM: 08/01/2020 COMPARISON: None HISTORY: Low back pain for years. CONTRAST: 0 mL intravenous Gadavist. TECHNIQUE: Multiplanar, multisequence images of the lumbar spine were acquired. FINDINGS: L5-S1: No spinal canal stenosis. Moderate bilateral foraminal narrowing is present. There is loss of disc height at this level. Broad-based residual disc bulge has moderate epidural space impression and may has some contact with the exiting nerve roots without displacement or obvious compression. L4-L5: Broad-based disc bulge has mild anterior thecal sac impression. Facet hypertrophy and ligament um flavum laxity is posterior lateral thecal sac compression. There is some canal narrowing through t hese levels. Moderate right foraminal narrowing is present. Facet hypertrophy is present greater on t he right. L3-L4: Subtle right paracentral disc bulge is present with anterior thecal sac compression. No AP spi nal canal stenosis present. Facet hypertrophy and ligamentum flavum laxity are present. Foramen are p atent. L2-L3: Subtle central protrusion is present. There is some broad-based disc bulge into the right para central region with anterior thecal sac contact. No spinal canal stenosis or neural foraminal stenosi s is present. L1-L2: Minimal disc bulging is anterior thecal sac contact. Mild facet hypertrophy is present. No spi nal canal stenosis or neural foraminal stenosis is present T12-L1: No significant disc bulge or disc herniation. No spinal canal stenosis. No foraminal stenos is. IMPRESSION: 1. Broad-based disc bulge with moderate epidural space impression at L5-S1 moderate foraminal narrowi ng is present. 2. Right foraminal narrowing L4-5. Broad-based disc bulge with mild anterior thecal sac compression L 4-5. 3. Subtle right paracentral disc bulge with mild anterior thecal sac compression L3-4. 4. Tiny central protrusion L2-L3 without stenosis.
== END | disposition home or self-care (01) ==
LOC: RADMRIMAIN 13:03
PROVIDERS: ATTEND Orthopaedic Surgery
DX: M48.061 Spinal stenosis, lumbar region without neurogenic claudication (principal); M51.26 Other intervertebral disc displacement, lumbar region
CPT/HCPCS: 72148

== ENCOUNTER 2020-08-29 12:05 | Day surgery (SDC) | payer OTHER ==
[2020-08-24 13:17] VITALS: BMI 32.1
[~2020-08-29 12:05] MED LIST changes: -HYDROmorphone 0.5 MG/0.5 ML SYRINGE IVP PRN; -LIDOCAINE 1% 20 ML VIAL (10MG/ML) FOR IV START INTRADERMA PRN; -ONDANSETRON 4 MG/2 ML VIAL IVP ONE
[2020-08-29 12:28] VITALS: RESP 20; TEMP 97
[2020-08-29] MEDS ORDERED: methylPREDNISolone ACETATE 40 MG/ML 1 ML VIAL ONE (13:01)
[2020-08-29] MEDS ORDERED: MIDAZOLAM 2 MG/2 ML VIAL ONE (13:01)
[2020-08-29] MEDS ORDERED: IOPAMIDOL M200 10 ML VIAL ONE (13:01)
[2020-08-29] MEDS ORDERED: fentaNYL (PF) 50 MCG/ML 2 ML AMP ONE (13:01)
--- NOTE | 2020-08-29 13:18 | P.PCN ---
Date of Procedure: 08/29/20 Procedure(s) Performed: PREOPERATIVE DIAGNOSIS: 1-Lumbar foraminal stenosis. 2-lumbar spondylosis POSTOPERATIVE DIAGNOSIS: Same as preoperative diagnoses. PROCEDURE 1. Transforaminal epidural steroid injection under fluoroscopic guidance at left L4-5 level, and left L5-S1. (Fluoroscopy images stored on file in the radiology Department ) 2. Lumbar epidurogram . ANESTHESIA: Local with 1% lidocaine 3 ml , moderate sedation with intravenous Versed 1 mg and fentanyle 50 micrograms. EBL: Minimal PROCEDURE INDICATION: The patient with low back pain and radiculopathy symptoms unresponsive to conservative treatment. PROCEDURE DESCRIPTION / TECHNIQUE: The patient was seen and identified in the preoperative area. Risks, benefits, complications, and alternatives were discussed with the patient. The patient agreed to proceed with the procedure and signed the consent. IV was started, and vital signs were stable. Patient was taken to the OR and time out was completed. The patient was placed in the prone position on procedure table and a pillow was placed under the abdomen to reduce lumbar lordosis. The lumbosacral area was prepped and draped in the usual sterile fashion. Critical pause was taken. Vital signs were closely monitored during the procedure. Conscious sedation was used during the procedure to decrease patient s anxiety. Using oblique fluoroscopy, the chin of the ``Tito dog at left L4-5 level was identified, and the skin and deeper tissues just below was localized with 1% lidocaine. Subsequently, a 22-gauge 5-inch spinal needle was advanced under a tunneled view fluoroscopic guidance just underneath the chin of the ``Tito dog at the left L4-5 Under lateral fluoroscopy, the needle was then advanced to the posterior border of the interforaminal space. After negative aspiration of CSF and blood and with no paresthesias, 1 mL Isovue 200 contrast dye was injected excellent epidurogram and outlining of the nerve root Subsequently, 3 mL of block solution containing 30 mg Depo-Medrol and 2 mL of 0.9% normal saline PF was injected. Needle was removed and the same procedure was repeated at the left L5-S1 level (s). At the end of the procedure, skin was cleansed, and bandages were applied. COMPLICATIONS:none DISPOSITION / PLANS: The patient was placed in a supine position and transferred to the recovery area in a stable condition for observation. There was no evidence of lower extremity motor or sensory deficit after the procedure. Patient was discharged from the recovery room after meeting discharge criteria. Home discharge instructions were given to the patient by the staff. The patient was reexamined prior to discharge.
[2020-08-29] MEDS ORDERED: IV FLUID CONTINUATION 700 ML IV ONE (13:19)
[2020-08-29 13:42] VITALS: BP 111/71; PULSE 71
--- NOTE | 2020-08-29 15:19 | FL ---
Fluoroscopy HISTORY: Pain 6 seconds fluoroscopy time supplied to the referring clinician. 2 intraoperative C-arm images docume nt the procedure. See dictated report from anesthesia.
== END 2020-08-29 13:42 | disposition home or self-care (01) ==
LOC: ORPAIN 12:05
PROVIDERS: ATTEND Specialist
DX: M47.26 Other spondylosis with radiculopathy, lumbar region (principal); M48.061 Spinal stenosis, lumbar region without neurogenic claudication; I10 Essential (primary) hypertension; E03.9 Hypothyroidism, unspecified
CPT/HCPCS: 64483; 64484; J2250; J1030; J3010; Q9966; 99152

== ENCOUNTER 2020-09-21 09:52 | Day surgery (SDC) | payer OTHER ==
[2020-09-20 09:36] VITALS: BMI 30.9
[2020-09-21 10:23] VITALS: TEMP 97
[2020-09-21] MEDS ORDERED: methylPREDNISolone ACETATE 40 MG/ML 1 ML VIAL ONE (10:43)
[2020-09-21] MEDS ORDERED: IOPAMIDOL M200 10 ML VIAL ONE (10:43)
[2020-09-21] MEDS ORDERED: fentaNYL (PF) 50 MCG/ML 2 ML AMP ONE (10:43)
[2020-09-21] MEDS ORDERED: MIDAZOLAM 2 MG/2 ML VIAL ONE (10:43)
--- NOTE | 2020-09-21 11:04 | P.PCN ---
Date of Procedure: 09/21/20 Procedure(s) Performed: PREOPERATIVE DIAGNOSIS: 1-Lumbar foraminal stenosis. 2-lumbar spondylosis POSTOPERATIVE DIAGNOSIS: Same as preoperative diagnoses. PROCEDURE 1. Transforaminal epidural steroid injection under fluoroscopic guidance at left L4-5 level, and left L5-S1. (Fluoroscopy images stored on file in the radiology Department ) 2. Lumbar epidurogram . ANESTHESIA: Local with 1% lidocaine 3 ml , moderate sedation with intravenous V ersed 1 mg and fentanyle 50 micrograms. EBL: Minimal PROCEDURE INDICATION: The patient with low back pain and radiculopathy symptoms unresponsive to conservative treatment. PROCEDURE DESCRIPTION / TECHNIQUE: The patient was seen and identified in the preoperative area. Risks, benefits, complications, and alternatives were discussed with the patient. The patient agreed to proceed with the procedure and signed the consent. IV was started, and vital signs were stable. Patient was taken to the OR and time out was completed. The patient was placed in the prone position on procedure table and a pillow was placed under the abdomen to reduce lumbar lordosis. The lumbosacral area was prepped and draped in the usual sterile fashion. Critical pause was taken. Vital signs were closely monitored during the procedure. Conscious sedation was used during the procedure to decrease patient s anxiety. Using oblique fluoroscopy, the chin of the ``Tito dog at left L4-5 level was identified, and the skin and deeper tissues just below was localized with 1% lidocaine. Subsequently, a 22-gauge 5-inch spinal needle was advanced under a tunneled view fluoroscopic guidance just underneath the chin of the ``Tito dog at the left L4-5 Under lateral fluoroscopy, the needle was then advanced to the posterior border of the interforaminal space. After negative aspiration of CSF and blood and with no paresthesias, 1 mL Isovue 200 contrast dye was injected excellent epidurogram and outlining of the nerve root Subsequently, 3 mL of block solution containing 30 mg Depo-Medrol and 2 mL of 0.9% normal saline PF was injected. Needle was removed and the same procedure was repeated at the left L5-S1 level (s). At the end of the procedure, skin was cleansed, and bandages were applied. COMPLICATIONS:none DISPOSITION / PLANS: The patient was placed in a supine position and transferred to the recovery area in a stable condition for observation. There was no evidence of lower extremity motor or sensory deficit after the procedure. Patient was discharged from the recovery room after meeting discharge criteria. Home discharge instructions were given to the patient by the staff. The patient was reexamined prior to discharge.
[2020-09-21] MEDS ORDERED: IV FLUID CONTINUATION 1,000 ML IV ONE (11:07)
[2020-09-21 11:36] VITALS: BP 102/60; PULSE 69; RESP 18
--- NOTE | 2020-09-22 12:57 | FL ---
Fluoroscopy HISTORY: Pain 26 seconds fluoroscopy time supplied to the referring clinician. 2 intraoperative C-arm images docum ent the procedure. See dictated report from anesthesia.
== END 2020-09-21 11:40 | disposition home or self-care (01) ==
LOC: ORPAIN 09:52
PROVIDERS: ATTEND Specialist
DX: M47.26 Other spondylosis with radiculopathy, lumbar region (principal); M48.061 Spinal stenosis, lumbar region without neurogenic claudication
CPT/HCPCS: 64483; 64484; J2250; J1030; J3010; Q9966; 99152

== ENCOUNTER 2020-10-10 11:20 | Day surgery (SDC) | payer OTHER ==
[2020-10-05 11:26] VITALS: BMI 30.1
[2020-10-10 11:36] VITALS: TEMP 97.3
[2020-10-10] MEDS ORDERED: LACTATED RINGERS 1,000 ML IV ONE (11:48)
[2020-10-10] MEDS ORDERED: DEXAMETHASONE SOD PHOSPHATE 10 MG/ML 1 ML VIAL ONE (12:26)
[2020-10-10] MEDS ORDERED: IOPAMIDOL M200 10 ML VIAL ONE (12:26)
[2020-10-10] MEDS ORDERED: MIDAZOLAM 2 MG/2 ML VIAL ONE (12:26)
[2020-10-10] MEDS ORDERED: fentaNYL (PF) 50 MCG/ML 2 ML AMP ONE (12:26)
[2020-10-10] MEDS ORDERED: LACTATED RINGERS 1,000 ML IV SCH (12:45)
[2020-10-10] MEDS ORDERED: IV FLUID CONTINUATION 1,000 ML IV ONE (12:54)
[2020-10-10 12:56] VITALS: RESP 18
[2020-10-10 13:07] VITALS: BP 114/63; PULSE 66
--- NOTE | 2020-10-10 13:15 | FL ---
EXAMINATION TYPE: FL guided pain mgmt statistic DATE OF EXAM: 10/10/2020 HISTORY: Fluoroscopy time Less than 60 seconds of fluoroscopy provided. IMPRESSION: 1. Fluoroscopy time.
--- NOTE | 2020-10-10 13:39 | P.PCN ---
Date of Procedure: 10/10/20 Description of Procedure: PREOPERATIVE DIAGNOSIS: Lumbar disc herniation POSTOPERATIVE DIAGNOSIS: Lumbar disc herniation PROCEDURE: 1) left L4-L5, and L5-S1 Transforaminal epidural steroid injection under fluoroscopic guidance, 2) Epidurogram SURGEON: Lois Miranda SIGNAL ENGINEER: None ANESTHESIA: Local , and IV sedation: None EBL: None. Specimen removed: None Fluoroscopic image: Saved to electronic medical records PROCEDURE INDICATION: The patient with continued lumbar pain with radiculopathy, and intervertebral disc disease without myelopathy that has failed to respond to adequate conservative management. Came here for repeat procedure. PROCEDURE DESCRIPTION: The patient was seen and identified in the preoperative area. Risks, benefits, complications, and alternatives were discussed with the patient. The patient agreed to proceed with the procedure and signed the consen t. Vital signs were stable. Patient was taken to the OR and time out was completed. The patient was placed in the prone position on procedure table and a pillow was placed under the abdomen to reduce lumbar lordosis. The lumbosacral area was prepped with ChloraPrep 1 and draped in the usual sterile fashion. Critical pause was taken. Vital signs were closely monitored during the procedure. Using 20 degree ipsilateral oblique fluoroscopy, the chin of the Tito dog of L4 and L5 was identified, and the skin and deeper tissues just below was localized with 1% lidocaine. 22-guage 5-inch spinal needles were used for the procedure. The needles were guided by fluoroscopy just underneath the chin of the Tito dog of L4 and L5. Under AP fluoroscopy, the needles were advanced to the 6 o'clock position of the L4 and L5 pedicles respectively. After negative aspiration of CSF and blood and with no paresthesias, 1 mL of Isovue-200 contrast dye was injected at each level with excellent anterior epidural spread and outlining of the L4 and L5 nerve roots. Each site then underwent injection of 3 mL of block solution. Block solution contained 10 mg of dexamethasone, and 5 mL of normal saline preservative-free. Needle was removed intact, skin was cleansed, and bandages were applied. COMPLICATIONS: None. DISPOSITION : The patient was placed in a supine position and transferred to the recovery area in a stable condition for observation and was discharged from the recovery room after meeting discharge criteria. Home discharge instructions given to the patient by the staff. The patient was reexamined prior to discharge. The patient will schedule follow-up in the clinic in 4 weeks' duration.
== END 2020-10-10 13:37 | disposition home or self-care (01) ==
LOC: ORPAIN 11:20
DX: M51.16 Intervertebral disc disorders with radiculopathy, lumbar region (principal); I10 Essential (primary) hypertension; E11.9 Type 2 diabetes mellitus without complications; E03.9 Hypothyroidism, unspecified
CPT/HCPCS: 64483; 64484; J2250; J1100; J3010; Q9966

== ENCOUNTER → 2020-11-06 | Outpatient (CLI) | payer OTHER ==
[2020-11-06 13:12] VITALS: BP 122/74; PULSE 74; RESP 18; TEMP 97.9
--- NOTE | 2020-11-06 13:30 | P.PN ---
Subjective Progress Note Date: 11/06/20 Pipe is a very pleasant 75-year-old gentleman who presents today for follow-up after having 3 transfemoral epidural steroid injections at the left L4 5 and L5- S1 levels. Injections were recommended by Dr. Barros's and. He reports that the injections offered very minimal relief. On today's visit he says he has a VAS of 1 or 2 out of 10 which is pretty common for him. He has pain which increases after activity. Minimal activities increases pain level to 3 or 4 out of 10 most days. He denies any overt weakness or any overt numbness or tingling in his lower extremities. The pain is mostly localized across the low back. He also reports he has a history of radiofrequency ablation lumbar spine with Dr. Peña which did not offer long-term benefit either. He reports that the radiofrequency ablations helped for a few days at a time only. He denies any neck pain or upper extremity weakness numbness or tingling. Review of Systems: Denies any New chest pain, short of breath, Nausea/vomitting, abdominal pain, bowel or bladder incontinence, or any overt new neurologic symptoms in the upper or lower extremities outside of what is noted in the HPI Objective - Vital Signs Vital signs: Vital Signs Temp 97.9 F 11/06/20 13:07 Pulse 74 11/06/20 13:07 Resp 18 11/06/20 13:07 BP 122/74 11/06/20 13:07 Pulse Ox 96 11/06/20 13:07 - Exam General: Awake and alert oriented 3 no distress Respiratory exam: No audible wheezing no accessory muscle usage Cardiovascular exam: regular rate, palpable bilateral pulses, no lower extremity edema Abdominal exam: No distention nontender to palpation Cervical spine: Normal alignment, Spurling's negative, facet loading negative, Coverage Analyst strength is 5/5, stephenson negative Lumbar spine: Some lumbar lordosis. Forward flexed body position. Atrovent paraspinal and gluteal muscles. Minimally tender to palpation. Flexion and extension are preserved with mild pain. Lower extremity strength is 4-5 bilaterally. Sacroiliac joints: Nontender to palpation, TAMMY is negative, Gaenselon negative Neuro exam: Normal sensation in bilateral upper extremities, deep tendon reflexes are 2+ bilateral upper extremities. Normal sensation in bilateral lower extremities. Deep tendon reflexes are 2+ in lower extremities Psych exam: Cooperative, appropriate mood Assessment and Plan Assessment: #1 spondylosis of lumbar without myelopathy #2 lumbar radiculopathy Plan: At this point asked him to follow-up with Dr. Barros sent for further re commendations. I will prescribe Celebrex 100 mg 2 times a day as needed. I discussed this with the patient and . I've asked him to use medications as needed and to stay hydrated while using the medication. I've given him 2 refills asked him to have that refilled from the primary care physician if needed. They're welcome to follow up with us if needed as well. I have spent 23 minutes on patient care today. The time was used to review the medical records including relevant urine studies and Prescription history (MAPs), review of the available imaging, evaluation and examination of the patient, coordination of care with the medical staff and if applicable referring physicians, as well as creation of the medical record.
== END ==
LOC: PNWHC3 13:01
PROVIDERS: ATTEND Hospitalist
DX: M47.26 Other spondylosis with radiculopathy, lumbar region (principal); Z87.891 Personal history of nicotine dependence
CPT/HCPCS: 99211

== ENCOUNTER → 2023-05-02 | Outpatient (CLI) | payer OTHER ==
--- NOTE | 2023-05-02 11:27 | MR ---
EXAMINATION TYPE: MR Prostate wo/w con DATE OF EXAM: 05/02/2023 8:43 AM COMPARISON: None. CLINICAL INDICATION:Male, 77 years old with history of R97.20 ELEVATED PROSTATE SPECIFIC ANTIGEN [PSA ]; Elevated PSA. TECHNIQUE: Multi-planar, multi-sequence imaging of the pelvis is performed prior to and following the uncomplicated administration of bolus intravenous gadolinium. CONTRAST: 10 Gadavist Interpretive Criteria: PI-RADS v2.1 SERUM PSA: 4.9 on 03/18/2023. 3.2 on 03/22/2022. 2.9 on 09/18/2021. SURGICAL PATHOLOGY: No data available. FINDINGS: Prostatic dimensions: 6.3 x 4.7 x 4.5 cm. Ellipsoid Volume:69.77 (PSA density=0.07 ng/mL/mL) CENTRAL GLAND (Central and Transition Zones/CZ+TZ): Multiple bilateral, heterogenous appearing hypertrophic stromal nodules, without suspicious lesion. M edian lobe hypertrophy with protrusion into the base of the bladder. (PI-RADS 2) PERIPHERAL ZONE (PZ): Limited evaluation of diffusion-weighted imaging due to right hip arthroplasty and gas in the rectum. No evidence of masslike abnormality, or localized perfusional hypervascularity, to further suggest a focus of clinically significant prostate cancer. (PI-RADS 2) SEMINAL VESICLES (SV): Symmetric and unremarkable. PERIPROSTATIC TISSUES: Unremarkable. LYMPH NODES: No enlarged pelvic lymph node. REMAINING PELVIS: Bladder wall is within normal limits given distention. No abnormal free or organized intrapelvic fluid collection. No pathologic bowel dilation or mural thickening. Colonic diverticula are present. Left fat containing inguinal hernia Complex bilateral cystic lesions in the testes. OSSEOUS STRUCTURES: No suspicious osseous abnormality. Right hip arthroplasty with susceptibility artifact. IMPRESSION: 1. No specific features for high-risk prostate cancer. Maximum PI-RADS score: 2. 2. Moderate BPH, estimated gland volume 69.77 mL. 3. Bilateral hydroceles with thin septations within the scrotum.
== END | disposition home or self-care (01) ==
LOC: RADMRIMAIN 07:34
PROVIDERS: ATTEND Urology
DX: N40.0 Benign prostatic hyperplasia without lower urinary tract symptoms (principal); N43.3 Hydrocele, unspecified; R97.20 Elevated prostate specific antigen [PSA]
CPT/HCPCS: 72197; A9585

== ENCOUNTER → 2023-08-19 | Outpatient (CLI) | payer OTHER ==
--- NOTE | 2023-08-19 11:47 | MR ---
EXAMINATION TYPE: MR lumbar spine wo con DATE OF EXAM: 08/19/2023 COMPARISON: 08/01/2020 HISTORY: Pain TECHNIQUE: T1 and T2 axial and sagittal images of the lumbar spine are submitted. FINDINGS: There is no abnormal signal seen within the visualized spinal cord or paraspinal soft tissu es. There is a slight scoliotic spine At L1-2 there is moderate degenerative disc disease and hypertrophic changes of facets but no discret e herniation is mild circumferential disc bulging. Mild bilateral foraminal encroachment. At L2-3 there is moderate degenerative disc disease and hypertrophic changes of facets. There is broa d-based central and right paracentral disc bulging or protrusion with mild effacement of the thecal s ac.. Mild bilateral foraminal encroachment. At L3-4 there is a vacuum disc and severe degenerative disc disease. Discogenic marrow changes. There is a broad-based central and right paracentral disc herniation and facet arthropathy ligamentum flav um hypertrophy and moderate canal stenosis. Moderate to severe right foraminal and lateral (impingeme nt. Findings are mildly progressed from prior exam. At L4-5 there is vacuum disc and severe degenerative disc disease and broad-based disc protrusion wit h advanced facet arthropathy and ligamentum flavum hypertrophy. Moderate bilateral foraminal encroach ment and moderate canal stenosis. Findings are stable. At L5-S1 there is severe degenerative disc disease with facet arthropathy greater on the left. Severe left foraminal encroachment with mild to moderate right foraminal encroachment. Posterior disc osteo phyte complex greater centrally and paracentrally left encroaches upon the left nerve root. Stable in appearance. 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 Stable. IMPRESSION: 1. Multilevel severe degenerative disc disease. Most marked at levels L3-4, L4-5 and L5-S1 with signi ficant foraminal encroachment as discussed above. 2. Moderate canal stenosis secondary to hypertrophic changes and disc protrusion or herniation at L3- 4, L4-5. 3. Posterior disc osteophyte complex with disc bulging or protrusion L5-S1 stable and likely contacts the left exiting nerve root. Hypertrophic changes contribute to severe left-sided foraminal encroach ment at this level.
== END | disposition home or self-care (01) ==
LOC: RADMRIMAIN 10:23
PROVIDERS: ATTEND Family Medicine
DX: M51.36 Other intervertebral disc degeneration, lumbar region (principal); M48.061 Spinal stenosis, lumbar region without neurogenic claudication; M25.78 Osteophyte, vertebrae; M47.816 Spondylosis without myelopathy or radiculopathy, lumbar region; M51.27 Other intervertebral disc displacement, lumbosacral region
CPT/HCPCS: 72148